=== PATIENT | female | born 1985 | race Caucasian/White ===

== ENCOUNTER 2022-03-14 11:30 | Outpatient (CLI) | payer OTHER | END 2022-03-14 11:31 | disposition home or self-care (01) | LOC: LAB 11:30 | PROVIDERS: ATTEND Nurse Practitioner | DX: N64.3 Galactorrhea not associated with childbirth (principal) | CPT/HCPCS: 36415; 84146 ==

== ENCOUNTER 2022-09-07 09:40 | Outpatient (CLI) | payer OTHER ==
[2022-09-07 10:41] LABS: THYROID STIMULATING HORMONE 0.73 uIU/mL (0.34-5.60)
[2022-09-07 10:48] LABS: PROLACTIN 5.78 ng/mL
[2022-09-07 11:10] LABS: FOLLICLE STIMULATING HORMONE 8.02 mIU/mL
[2022-09-07 11:12] LABS: LUTEINIZING HORMONE 10.14 mIU/mL
[2022-09-08 07:09] LABS: ESTRADIOL 21.3 pg/mL (.); PROGESTERONE 0.1 ng/mL (.)
[2022-09-08 18:07] LABS: FREE TESTOSTERONE(DIRECT) 1.4 pg/mL (0.0-4.2); SEX HORM BINDING GLOB SERUM 34.8 nmol/L (24.6-122.0)
== END 2022-09-07 09:41 | disposition home or self-care (01) ==
LOC: LAB 09:40
PROVIDERS: ATTEND Nurse Practitioner
DX: N93.8 Other specified abnormal uterine and vaginal bleeding (principal)
CPT/HCPCS: 36415; 82397; 82627; 82670; 83001; 83002; 83498; 84144; 84146; 84270; 84402; 84403; 84443

== ENCOUNTER 2022-09-26 07:40 | Outpatient (CLI) | payer OTHER ==
--- NOTE | 2022-09-26 12:10 | Ultrasound Report ---
PROCEDURE: Pelvic w/Transvaginal INDICATIONS: DUB TECHNIQUE: Real-time scanning was performed of the pelvic organs, with image documentation. Additional endovagi nal scanning was necessary due to incomplete visualization of the adnexal and endometrial structures by transabdominal scanning. COMPARISON: None. FINDINGS: Uterus: Uterus is anteverted and normal in size at 9.9 x 4.4 x 5.7 cm. The myometrium is homogeneou s. The endometrium measures 9 mm in combined thickness. Ovaries: The right ovary measures 2.1 x 2.1 x 2.6 cm, with a calculated ovarian volume of 6 cc. The left ovary measures 1.5 x 3.6 x 1.3 cm, with a calculated ovarian volume of 3.6 cc. The ovaries hav e an unremarkable sonographic appearance. Less than 12 follicles can be seen in each ovary. No adne xal masses are seen. No cystic lesions measuring greater than 3 cm. Other: No pathologic free abdominal or pelvic fluid. IMPRESSION: Unremarkable pelvic ultrasound. Reviewed by: Marco Mattson MD on 09/26/2022 12:09 PM PDT Approved by: Marco Mattson MD on 09/26/2022 12:09 PM PDT Station ID: [id number]
== END 2022-09-26 07:41 | disposition home or self-care (01) ==
LOC: DI 07:40
PROVIDERS: ATTEND Nurse Practitioner
DX: N93.8 Other specified abnormal uterine and vaginal bleeding (principal)

== ENCOUNTER 2023-12-03 19:09 | Outpatient (CLI) | payer OTHER ==
--- NOTE | 2023-12-04 09:42 | Ultrasound Report ---
PROCEDURE: Extremity Soft Tissue Limited INDICATIONS: ARM LUMP TECHNIQUE: Real-time scanning was performed of the left upper arm, with image documentation. COMPARISON: None. FINDINGS: Focused ultrasound examination of left upper arm at patient's reported area of palpable [place] mp shows an oval solid appearing structure measures 3.3 x 0.8 x 1.4 cm in size within subcutaneous so ft tissue and is isoechoic to adjacent subcutaneous fat. No internal vascularity is seen. IMPRESSION: Finding likely represent a lipoma in left upper arm soft tissue, suggest clinical correl ation and follow-up. Reviewed by: Usman Piña MD on 12/04/2023 9:41 AM PDT Approved by: Usman Piña MD on 12/04/2023 9:41 AM PDT Station ID: [id number]
== END 2023-12-03 19:10 | disposition home or self-care (01) ==
LOC: DI 19:09
PROVIDERS: ATTEND Student in an Organized Health Care Education/Training Program
DX: R22.32 Localized swelling, mass and lump, left upper limb (principal)